=== PATIENT | male | born 1955 | race Caucasian/White ===

== ENCOUNTER 2024-05-23 18:32 | Emergency (ER) | payer SELFPAY ==
[~2024-05-23] VITALS: Ht 170.2 cm; Wt 77.0 kg
[2024-05-23 18:36] VITALS: O2SAT 99
[2024-05-23] MEDS ORDERED: FAMOTIDINE 20MG/2ML VIAL IV ONE (20:15)
[2024-05-23] MEDS: ONDANSETRON HCL 4MG/2ML INJ IV ONE (20:32)
[2024-05-23] MEDS: KETOROLAC 30MG/ML VIAL IV ONE (20:33)
[2024-05-23 20:41] LABS: HEMATOCRIT. 44.5 % (42.0-52.0); MEAN CORPUSCULAR HGB CONC 33.8 g/dL (31.0-37.0); MEAN CORPUSCULAR VOLUME 91.6 fL (80.0-94.0); MEAN PLATELET VOLUME 7.8 fl (7.4-10.4); PLATELET 248 x1000/uL (130-400); RED BLOOD CELL COUNT 4.86 mill/uL (4.7-6.1); RED CELL DISTRIBUTION WIDTH 13.1 % (11.6-14.6)
[2024-05-23 20:46] LABS: CHLORIDE 108 mEq/L (98-107); CLARITY URINE CLEAR (CLEAR); COLOR URINE YELLOW (YELLOW); DIFFERENTIAL COMMENT 1; GLUCOSE URINE NEGATIVE (NEGATIVE); KETONES URINE 1+ (NEGATIVE); LEUKOCYTE ESTERASE URINE NEGATIVE (NEGATIVE); NITRITE URINE NEGATIVE (NEGATIVE); OCCULT BLOOD URINE TRACE (NEGATIVE); PH URINE 7.5 (4.5-8.0); PROTEIN URINE NEGATIVE (NEGATIVE); SPECIFIC GRAVITY URINE 1.012 (1.005-1.030)
[2024-05-23 20:47] LABS: CARBON DIOXIDE 26 mEq/L (21-32); POTASSIUM 3.8 mEq/L (3.5-5.1); SODIUM 142 mEq/L (136-145)
[2024-05-23 20:48] LABS: CALCIUM 9.1 mg/dL (8.7-10.4)
[2024-05-23 20:52] LABS: GLUCOSE 142 mg/dL (70-105); PROTHROMBIN TIME 10.9 sec (9.6-11.0)
[2024-05-23 20:53] LABS: TROPONIN I HIGH SENSITIVITY 5 ng/L (3.0-53); UREA NITROGEN BLOOD 16 mg/dL (9-23)
[2024-05-23 20:54] LABS: ALANINE AMINOTRANSFERASE 236 IU/L (10-49); ALBUMIN 4.5 g/dL (3.2-4.8); ASPARTATE AMINOTRANSFERASE 348 IU/L (<34)
[2024-05-23 20:55] LABS: BILIRUBIN DIRECT 1.4 mg/dL (<=3.0); BILIRUBIN TOTAL 2.2 mg/dL (0.1-1.0); PROTEIN TOTAL 6.8 g/dL (6.0-8.3)
[2024-05-23 21:19] LABS: SQUAMOUS EPITHELIAL CELL URINE 1+ /lpf (RARE/1+); WBC URINE 0-2 /hpf (0-2)
[2024-05-23 21:20] LABS: BACTERIA URINE TRACE
[2024-05-23 22:06] LABS: PLATELET ESTIMATE NORMAL
[2024-05-23] MEDS: FAMOTIDINE 20MG/2ML VIAL IV NR (22:26)
[2024-05-23 22:50] VITALS: BP 115/74; PULSE 68; RESP 14; TEMP 97.8
== END 2024-05-23 22:50 | disposition home or self-care (01) ==
LOC: ER 18:32
DX: M79.10 Myalgia, unspecified site (principal); R42 Dizziness and giddiness; I10 Essential (primary) hypertension
CPT/HCPCS: 80076; 80048; 81003; 83605; 83690; 85025; 85610; 84484; 36415; 74177; 96374; 96375; 99285; J3490; J1885; J2405; Z7610